=== PATIENT | male | born 1995 | race Asian ===

== ENCOUNTER 2018-10-10 09:45 | Emergency (ER) | payer SELFPAY ==
[~2018-10-10] VITALS: Ht 190.5 cm; Wt 90.7 kg
[2018-10-10 09:53] VITALS: BP 133/74
== END 2018-10-10 12:11 | disposition home or self-care (01) ==
LOC: ED 09:45
DX: N45.1 Epididymitis (principal); F17.210 Nicotine dependence, cigarettes, uncomplicated; Z71.6 Tobacco abuse counseling
CPT/HCPCS: 87491; 87591; 99406; J0696; J2001